=== PATIENT | male | born 1965 | race Caucasian/White ===

== ENCOUNTER 2023-02-18 15:38 | Emergency (ER) | payer OTHER ==
[~2023-02-18] VITALS: Ht 185.4 cm; Wt 103.5 kg
[2023-02-18 16:04] LABS: BASOPHILS 0.6 % (0-2); EOSINOPHILS 0.8 % (0-6); HEMATOCRIT 46.2 % (35.0-50.0); HEMOGLOBIN 15.9 g/dL (12.0-18.0); LYMPHOCYTES 15.8 % (24-44); MCH 29.5 (27-36); MCHC 34.4 g/dl (30-36); MCV 85.8 fl (81-99); NEUTROPHILS 76.8 % (39-80); PLATELET COUNT 218 K/uL (140-440); RBC 5.38 M/ul (4.3-5.7); RDW 13.1 (10.5-15.0)
[2023-02-18 16:15] LABS: ALBUMIN 4.4 g/dL (3.4-5.0); ALBUMIN/GLOBULIN RATIO 1.33 (1.1-2.4); ANION GAP 13.6 (7-21); BILIRUBIN, TOTAL 0.7 ng/dL (0.2-1.0); BUN/CREATININE RATIO 9.6 (6.0-28.6); CALCIUM 9.2 mg/dL (8.5-10.1); CREATININE, SERUM 1.25 mg/dL (0.70-1.30); POTASSIUM 3.6 mmol/L (3.5-5.1); PROTEIN, TOTAL 7.7 g/dL (6.4-8.2)
[2023-02-18] MEDS ORDERED: LOSARTAN POTASS25 MG PO (18:38)
[2023-02-18 19:08] VITALS: BP 175/105
--- NOTE | 2023-02-19 06:26 | EKG ---
[facility] [address] [facility] [place], [place] [address] Signed Normal sinus rhythm Normal ECG No previous ECGs available Confirmed by DEYA ANDERSON MD ([id number]) on 02/19/2023 6:26:08 AM Electronically Signed By: DEYA ANDERSON 02/19/23 0626 PATIENT NAME: ZAIRE WILHELM Electrocardiogram DATE OF : 67 PHYSICIAN: DEYA ANDERSON REPORT #: [id number] REPORT IS CONFIDENTIAL AND NOT TO BE RELEASED WITHOUT AUTHORIZATION
== END 2023-02-18 19:02 | disposition home or self-care (01) ==
LOC: ED 15:38
PROVIDERS: Emergency Medicine
DX: R51.9 Headache, unspecified (principal); I10 Essential (primary) hypertension; E11.9 Type 2 diabetes mellitus without complications
CPT/HCPCS: 36415; 70450; 80053; 85025; 93005; 93010; 96361; 96374; 96375; 99284-25; J1200; J1885; J2765; J7030